=== PATIENT | female | born 1955 | race Two or more races ===

== ENCOUNTER 2017-01-08 20:17 | Emergency (ER) | payer OTHER ==
[2017-01-08 20:54] LABS: URINE BILIRUBIN NEGATIVE (NEGATIVE); URINE BLOOD NEGATIVE (NEGATIVE); URINE GLUCOSE (UA) NEGATIVE (NEGATIVE); URINE LEUKOCYTE ESTERASE NEGATIVE (NEGATIVE); URINE NITRITE NEGATIVE (NEGATIVE); URINE PROTEIN NEGATIVE (NEGATIVE); URINE UROBILINOGEN NORMAL (0-1 mg/dl)
[2017-01-08 20:59] LABS: URINE APPEARANCE CLEAR; URINE COLOR YELLOW
[2017-01-08 21:57] LABS: ABSOLUTE NEUTROPHIL COUNT 6.8 K/mm3 (1.8-7.7); BASO % 0.1 % (0.2-1.0); EOS # 0.1 (0.0-0.5); EOS % 1.4 % (0.9-2.9); HEMATOCRIT 36.7 % (37.0-47.0); HEMOGLOBIN 11.9 gm/l (12.0-16.0); IMM NEUT% 0.2 % (0-1); LYMPH # 1.8 (1.0-4.8); MEAN CELL VOLUME 92.7 fl (81.0-99.0); MEAN CORPUSCULAR HEMOGLOBIN 30.1 pg (27.0-31.0); MEAN CORPUSCULAR HGB CONC 32.4 g/dl (33.0-37.0); MEAN PLATELET VOLUME 11.7 fl (7.4-10.4); MONO # 0.3 (0.0-0.8); MONO % 3.2 % (4-12); NEUT % 75.1 % (43-75); PLATELET COUNT 244 K/mm3 (130-400); RED CELL DISTRIBUTION WIDTH 13.4 % (11.5-14.5)
[2017-01-08 22:00] LABS: HCG,QUALITATIVE URINE NEGATIVE
[2017-01-08 22:12] LABS: ALB/GLOB RATIO 1.2 (>1.0); ALBUMIN 3.8 gm/dL (3.5-5.7); CALCIUM 8.7 mg/dL (8.6-10.3)
[2017-01-08] MEDS ORDERED: HYDROCODONE/ACETAMINOPHEN 5/325MG TABLET ONE (22:41)
--- NOTE | 2017-01-09 08:10 | RAD ---
Exam: Two-view chest COMPARISON: None INDICATION: Right upper quadrant pain. FINDINGS: PA and lateral views of the chest were obtained. Cardiac silhouette is within normal limits. Lungs are well-inflated. There is no focal airspace disease or pleural effusion. Bones of the chest wall within normal limits. IMPRESSION: Negative two-view chest.
--- NOTE | 2017-01-09 08:13 | US ---
Exam: Gallbladder ultrasound COMPARISON: None INDICATION: Right upper quadrant pain. FINDINGS: Gallbladder ultrasound was obtained. The gallbladder is normal without stones, sludge or wall thickening. [employer] did report a positive Boland sign, but this is of uncertain significance given that the gallbladder is unremarkable. There is no intra or extra biliary ductal dilation; common bile duct normal at 1 mm. IMPRESSION: Essentially negative gallbladder ultrasound. No gallstones. Preliminary report transmitted to the emergency department from [facility] at 2235 hours 01/08/2017.
== END 2017-01-08 23:12 | disposition home or self-care (01) ==
LOC: ED 20:17
DX: R07.89 Other chest pain (principal); R10.9 Unspecified abdominal pain; E11.9 Type 2 diabetes mellitus without complications
CPT/HCPCS: 83690; 81025; 85025; 80053; 81003; 71020; 76705; 99284 ×2; 93005; A9270